=== PATIENT | female | born 1940 | race Caucasian/White ===

== ENCOUNTER 2024-01-13 13:56 | Emergency (ER) | payer MEDICARE, OTHER, SELFPAY ==
[2024-01-13 14:06] VITALS: BP 165/83; PULSE 63; TEMP 36.7; O2SAT 96; BMI 35.6
--- NOTE | 2024-01-13 14:40 | XR_ITS ---
The [address] [address] Patient Name: ADRIAN AGUAYO MRN: [id number] date: 1940 Sex: F Assigned Patient Location: ER Current Patient Location: ER Accession/Order Number: [id number] Exam Date: 01/13/2024 15:00 Report Date: 01/13/2024 16:10 At the request of: RIVER AGUILAR Procedure: XR ribs RT min 3V w CXR1V EXAMINATION: XR ribs RT min 3V w CXR1V HISTORY: Atraumatic pain COMPARISON: No relevant comparison available. FINDINGS: LUNGS: No significant pulmonary parenchymal abnormalities. PLEURA: No pneumothorax, effusion, or pleural thickening. MEDIASTINUM: No visible mass or adenopathy. CARDIAC: No cardiomegaly or cardiac silhouette abnormality. RIBS: No acute rib fracture OTHER: Degenerative spondylosis of the spine XR/XR ribs RT min 3V w CXR1V IMPRESSION: Clear lungs No acute rib fracture Electronically authenticated by: HEAVEN ARGUELLES Date: 01/13/2024 16:10
--- NOTE | 2024-01-13 14:50 | ED_ITS ---
HPI HPI - General Adult General Chief complaint: Extremity Injury, Upper Stated complaint: RIGHT FLANK PAIN Time Seen by Provider: 01/13/24 14:00 Source: patient Mode of arrival: walk-in Limitations: no limitations History of Present Illness HPI narrative: 83-year-old female presenting for right lateral lower rib area pain. It has been that way for 4 days. There is no trauma dysuria or hematuria. She does not complain of cough or shortness of breath. If she lays still it does not hurt at all but if she moves at all it hurts. Pushing on it makes it worse as well and the pain is sharp. Related Data Home Medications ?Medication ?Instructions ?Recorded ?Confirmed apixaban 2.5 mg tablet (Eliquis) 2.5 mg PO Q12H 01/13/24 01/13/24 bisoprolol fumarate 5 mg tablet 5 mg PO BID 01/13/24 01/13/24 celecoxib 200 mg capsule (Celebrex) 200 mg PO DAILY 01/13/24 01/13/24 cyanocobalamin (vitamin B-12) 1,000 mcg IM Q3D 01/13/24 01/13/24 1,000 mcg/mL injection solution donepezil 5 mg tablet 5 mg PO .qhs 01/13/24 01/13/24 flecainide 50 mg tablet 50 mg PO Q12H 01/13/24 01/13/24 furosemide 40 mg tablet 80 mg PO DAILY 01/13/24 01/13/24 hydralazine 50 mg tablet 50 mg PO Q12H 01/13/24 01/13/24 levothyroxine 112 mcg tablet 100 mcg PO DAILY 01/13/24 01/13/24 losartan 50 mg tablet 25 mg PO DAILY 01/13/24 01/13/24 potassium chloride 20 mEq 20 meq PO DAILY 01/13/24 01/13/24 tablet,extended release spironolactone 25 mg tablet 25 mg PO Q12H 01/13/24 01/13/24 Allergies Allergy/AdvReac Type Severity Reaction Status Date / Time codeine AdvReac Intermediate Unknown Verified 01/13/24 14:20 meperidine [From Demerol] AdvReac Intermediate Unknown Verified 01/13/24 14:20 sofadol AdvReac Intermediate Unknown Uncoded 01/13/24 14:20 Opioid HPI Opioid Management Most Recent Opioid Data: No Data to Display Review of Systems ROS Narrative A ten point review of systems is negative except as noted above. PFSH PFSH Social History Little interest or pleasure in doing things: not at all Feeling down, depressed, or hopeless: not at all Exam Narrative Exam Narrative: Nurses note and vital signs reviewed and patient is not hypoxic. General: The patient appears well and in no apparent distress. Skin: Warm, dry, no pallor noted. There is no rash noted. Head: Normocephalic, atraumatic Eye: Normal conjunctiva, no drainage Ears, Nose, Mouth, and Throat: oral mucosa is moist. Nares patent. Cardiovascular: Regular Rate and Rhythm Respiratory: Patient is in no distress, no accessory muscle use, lungs are clear to auscultation, no wheezing, rales or rhonchi. Breath sounds are equal. She has reproducible tenderness to the right lateral lower rib area. There is no crepitus bruise or rash in this area. Back: non-tender GI: Soft and nontender including the right upper quadrant Musculoskeletal: The patient has no evidence of calf tenderness, no pitting edema, symmetrical pulses noted bilaterally Neurological: Awake alert Psychiatric: Cooperative Constitutional Vital Signs, click to edit/add: Last Vital Signs Temp 98.0 F 01/13/24 14:06 Pulse 63 01/13/24 14:06 Resp 18 01/13/24 14:06 BP 165/83 H 01/13/24 14:06 Pulse Ox 96 01/13/24 14:06 O2 Del Method Room Air 01/13/24 14:06 Course Vital Signs Vital signs: Vital Signs Temperature 98.0 F 01/13/24 14:06 Pulse Rate 63 01/13/24 14:06 Respiratory Rate 18 01/13/24 14:06 Blood Pressure 165/83 H 01/13/24 14:06 Pulse Oximetry 96 01/13/24 14:06 Oxygen Delivery Method Room Air 01/13/24 14:06 Temperature 98.0 F 01/13/24 14:06 Pulse Rate 63 01/13/24 14:06 Respiratory Rate 18 01/13/24 14:06 Blood Pressure 165/83 H 01/13/24 14:06 Pulse Oximetry 96 01/13/24 14:06 Oxygen Delivery Method Room Air 01/13/24 14:06 Medical Decision Making MDM Narrative Medical decision making narrative: Urinalysis is negative and rib films are negative as well. Her pain is reproducible and my clinical impression is that she has chest wall pain. I have no clinical suspicion of Pulmonary: Embolism. She is on Eliquis and we will avoid anti-inflammatories. Ice and Tylenol were recommended. Treatment diagnosis and follow-up were discussed with the patient and her family. Differential Diagnosis Differential Diagnosis: UTI, chest wall pain, muscle strain Lab Data Lab results reviewed: Yes I reviewed the patient's lab results Labs: Lab Results 01/13/24 01/13/24 Range/Units 14:45 14:53 WBC 7.6 (4.0-11.0) 10^3/uL RBC 4.37 (4.20-5.40) 10^6/uL Hgb 13.9 (12.0-16.0) g/dL Hct 43.2 (36.0-48.0) % MCV 98.9 (81.0-99.0) fL MCH 31.8 (26.7-34.0) pg MCHC 32.2 (29.9-35.2) g/dL RDW 12.9 (11.0-15.0) % Plt Count 225 (150-450) 10^3/uL MPV 9.7 (9.5-13.5) fL Neut % (Auto) 68.6 (43.0-75.0) % Lymph % (Auto) 17.8 L (20.5-60.0) % [place] % (Auto) 11.0 (1.7-12.0) % Eos % (Auto) 1.8 (0.9-7.0) % Baso % (Auto) 0.5 (0.2-2.0) % Neut # (Auto) 5.2 (1.4-6.5) 10^3/uL Lymph # (Auto) 1.4 (1.2-3.8) 10^3/uL [place] # (Auto) 0.8 (0.3-0.8) 10^3/uL Eos # (Auto) 0.1 (0.0-0.7) 10^3/uL Baso # (Auto) 0.0 (0.0-0.1) 10^3/uL Abs Immat Gran (auto) 0.02 (0.00-0.03) 10^3/uL Imm/Tot Granulo (auto) 0.3 (0.0-0.5) % Sodium 139 (136-145) mmol/L Potassium 4.2 (3.5-5.1) mmol/L Chloride 103 (98-107) mmol/L Carbon Dioxide 29.3 (21.0-32.0) mmol/L Anion Gap 10.9 BUN 34.0 H (7.0-18.0) mg/dL Creatinine 1.47 H (0.55-1.02) mg/dL Est GFR ( Amer) 41 L (>=60) Est GFR (Non-Af Amer) 34 L (>=60) BUN/Creatinine Ratio 23.1 Glucose 96 (74-106) mg/dL Calcium 9.7 (8.5-10.1) mg/dL Urine Color Lt. yellow (YELLOW) Urine Clarity Clear (CLEAR) Urine pH 6.0 (5.0-9.0) Ur Specific [place] 1.015 (1.005-1.025) Urine Protein Negative (NEG/TRACE) mg/dL Urine Glucose (UA) Negative (NEGATIVE) mg/dL Urine Ketones Negative (NEGATIVE) mg/dL Urine Occult Blood Negative (NEGATIVE) Urine Nitrite Negative (NEGATIVE) Urine Bilirubin Negative (NEGATIVE) Urine Urobilinogen 0.2 (0.2-1.0) EU/dL Ur Leukocyte Esterase Trace A (NEGATIVE) Urine RBC None seen (0-2) #/HPF Urine WBC 2-5 A (NONE SEEN) #/HPF Ur Squamous Epith Cells Few A (NONE/RARE) #/LPF Urine Bacteria None seen (NONE SEEN) #/HPF Urine Mucus None seen (NONE SEEN) Imaging Data Chest x-ray: Radiologist's impression: ITS Impressions Ribs X-Ray 01/13/24 14:40 IMPRESSION: Clear lungs No acute rib fracture Electronically authenticated by: HEAVEN ARGUELLES Date: 01/13/2024 16:10 Discharge Plan Discharge Chief Complaint: Extremity Injury, Upper Clinical Impression: Chest wall pain Patient Disposition: Home, Self-Care Time of Disposition Decision: 16:29 Condition: Good Mode of Transportation: Private Vehicle Prescriptions / Home Meds: No Action Eliquis 2.5 mg tablet 2.5 mg PO Q12H bisoprolol fumarate 5 mg tablet 5 mg PO BID cyanocobalamin (vitamin B-12) 1,000 mcg/mL solution 1,000 mcg IM Q3D donepezil 5 mg tablet 5 mg PO .qhs flecainide 50 mg tablet 50 mg PO Q12H furosemide 40 mg tablet 80 mg PO DAILY hydralazine 50 mg tablet 50 mg PO Q12H levothyroxine 112 mcg tablet 100 mcg PO DAILY losartan 50 mg tablet 25 mg PO DAILY potassium chloride 20 mEq tablet extended release 20 meq PO DAILY spironolactone 25 mg tablet 25 mg PO Q12H celecoxib [Celebrex] 200 mg capsule 200 mg PO DAILY Print Language: Greenlandic Instructions: Chest Wall Pain (ED) Additional Instructions: Ice and Tylenol for pain Referrals: CARMELO TATUM MD [Primary Care Provider] - 1 week
[2024-01-13 15:00] LABS: Basophils Percent Auto 0.5 % (0.2-2.0); Eosinophils Absolute Auto 0.1 10^3/uL (0.0-0.7); Eosinophils Percent Auto 1.8 % (0.9-7.0); Hematocrit 43.2 % (36.0-48.0); Hemoglobin 13.9 g/dL (12.0-16.0); Immature Granulocytes Abs Auto 0.02 10^3/uL (0.00-0.03); Immature Granulocytes Pct Auto 0.3 % (0.0-0.5); Lymphocytes Absolute Auto 1.4 10^3/uL (1.2-3.8); Lymphocytes Percent Auto 17.8 % (20.5-60.0); Mean Corpuscular HGB Conc 32.2 g/dL (29.9-35.2); Mean Corpuscular Hemoglobin 31.8 pg (26.7-34.0); Mean Corpuscular Volume 98.9 fL (81.0-99.0); Mean Platelet Volume 9.7 fL (9.5-13.5); Monocytes Absolute Auto 0.8 10^3/uL (0.3-0.8); Neutrophils Absolute Auto 5.2 10^3/uL (1.4-6.5); Neutrophils Percent Auto 68.6 % (43.0-75.0); Platelet Count 225 10^3/uL (150-450); Red Blood Count 4.37 10^6/uL (4.20-5.40); Red Cell Distribution Width 12.9 % (11.0-15.0); White Blood Count 7.6 10^3/uL (4.0-11.0)
[2024-01-13 15:01] LABS: Bilirubin Urine NEGATIVE (NEGATIVE); Blood Urine NEGATIVE (NEGATIVE); Clarity Urine CLEAR (CLEAR); Color Urine LT. YELLOW (YELLOW); Glucose Urine UA NEGATIVE (NEGATIVE); Ketones Urine NEGATIVE (NEGATIVE); Leukocyte Esterase Urine TRACE (NEGATIVE); Nitrite Urine NEGATIVE (NEGATIVE); Protein Urine NEGATIVE (NEG/TRACE); Specific Gravity Urine 1.015 (1.005-1.025); Urobilinogen Urine 0.2 EU/dL (0.2-1.0)
[2024-01-13 15:09] LABS: Bacteria Urine NONE SEEN #/HPF (NONE SEEN); Mucus Urine NONE SEEN (NONE SEEN); RBC Urine NONE SEEN #/HPF (0-2)
[2024-01-13 15:10] LABS: Squamous Epithelial Cell Urine FEW #/LPF (NONE/RARE)
[2024-01-13 15:34] LABS: Anion Gap 10.9; BUN Creatinine Ratio 23.1; Calcium 9.7 mg/dL (8.5-10.1); Carbon Dioxide 29.3 mmol/L (21.0-32.0); Chloride 103 mmol/L (98-107); Estimated GFR (African America 41 (>=60); Estimated GFR (Non-African Ame 34 (>=60); Glucose 96 mg/dL (74-106); Potassium 4.2 mmol/L (3.5-5.1); Sodium 139 mmol/L (136-145)
[2024-01-13 16:39] VITALS: BP 138/74; PULSE 78; O2SAT 99
== END 2024-01-13 16:41 | disposition home or self-care (01) ==
PROVIDERS: Emergency Provider Emergency Medicine; PCP Internal Medicine
DX: R07.89 Other chest pain (principal)
CPT/HCPCS: 36415; 71101; 80048; 81001; 85025; 99284

== ENCOUNTER 2024-02-06 12:58 | Emergency (ER) | payer MEDICARE, OTHER, SELFPAY ==
[2024-02-06] VITALS (7 sets, daily range): BP systolic 153; BP diastolic 86; PULSE 65–70; TEMP 36.5; O2SAT 95–97; BMI 34.3
--- NOTE | 2024-02-06 13:14 | XR_ITS ---
The [address] [address] Patient Name: ADRIAN AGUAYO MRN: [id number] date: 1940 Sex: F Assigned Patient Location: ER Current Patient Location: ER Accession/Order Number: [id number] Exam Date: 02/06/2024 13:40 Report Date: 02/06/2024 13:58 At the request of: CLAUDIA UPTON Procedure: XR chest 1V EXAMINATION: XR chest 1V HISTORY: cough, SOB COMPARISON: No relevant comparison available. TECHNIQUE: AP portable erect FINDINGS: LUNGS: No significant pulmonary parenchymal abnormalities. VASCULATURE: No increased pulmonary vasculature. PLEURA: No pneumothorax, effusion, or pleural thickening. CARDIAC: No cardiomegaly or cardiac silhouette abnormality. MEDIASTINUM: No visible mass or adenopathy. BONES: Mild degenerative disc disease and spondylosis without visible acute abnormalities. OTHER: Negative. XR/XR chest 1V IMPRESSION: No acute cardiopulmonary process Electronically authenticated by: HEAVEN ARGUELLES Date: 02/06/2024 13:58
--- NOTE | 2024-02-06 13:14 | ECG_ITS ---
The [facility] Test Date: 2024-02-06 Pat Name: ADRIAN AGUAYO Department: Room: - Gender: Female Manager [employer]: : 1940 Requested By: 1813 Order Number: [id number] Reading MD: ONEL VERGARA Measurements Intervals [place] Rate: 66 P: 96 [place]: 186 QRS: -4 QRSD: 94 T: 36 QT: 344 QTc: 358 Interpretive Statements 1100 Sinus rhythm 4068 Nonspecific Twave abnormality 8305 Short QTc interval 9150 abnormal ECG No previous ECG available for comparison Electronically Signed On 02-06-2024 22:44:49 EDT by ONEL VERGARA
--- NOTE | 2024-02-06 13:16 | ED.SOB1 ---
HPI - SOB/Dyspnea General Chief Complaint: Shortness of Breath/Dyspnea Stated Complaint: URI SYMPTOMS Time Seen by Provider: 02/06/24 13:09 Source: family Mode of arrival: Wheelchair Limitations: no limitations History of Present Illness HPI Narrative: 83 year old female presents to the ED for cough, SOB. Onset was 4 days ago with the cough, congestion. She developed SOB, wheezing last night. Denies fever, chills, N/V/D. Multiple family members are ill; daughter states one family member was diagnosed with RSV. Pt has hx a-fib. She takes Eliquis. Related Data Home Medications ?Medication ?Instructions ?Recorded ?Confirmed apixaban 2.5 mg tablet (Eliquis) 2.5 mg PO Q12H 01/13/24 02/06/24 bisoprolol fumarate 5 mg tablet 5 mg PO BID 01/13/24 02/06/24 celecoxib 200 mg capsule (Celebrex) 200 mg PO DAILY 01/13/24 02/06/24 cyanocobalamin (vitamin B-12) 1,000 mcg IM Q3D 01/13/24 02/06/24 1,000 mcg/mL injection solution donepezil 5 mg tablet 5 mg PO .qhs 01/13/24 02/06/24 flecainide 50 mg tablet 50 mg PO Q12H 01/13/24 02/06/24 furosemide 40 mg tablet 80 mg PO DAILY 01/13/24 02/06/24 hydralazine 50 mg tablet 50 mg PO Q12H 01/13/24 02/06/24 levothyroxine 112 mcg tablet 100 mcg PO DAILY 01/13/24 02/06/24 losartan 50 mg tablet 25 mg PO DAILY 01/13/24 02/06/24 potassium chloride 20 mEq 20 meq PO DAILY 01/13/24 02/06/24 tablet,extended release spironolactone 25 mg tablet 25 mg PO Q12H 01/13/24 02/06/24 Previous Rx's ?Medication ?Instructions ?Recorded albuterol sulfate 2.5 mg/3 mL 2.5 mg (3 mL) inhalation Q8H PRN 02/06/24 (0.083 %) solution for nebulization shortness of breath or wheezing #90 mL benzonatate 100 mg capsule 100 mg PO BID PRN cough #20 caps 02/06/24 prednisone 10 mg tablet See Rx Instructions .Route 02/06/24 .COMPLEX #30 tabs Allergies Allergy/AdvReac Type Severity Reaction Status Date / Time codeine AdvReac Intermediate Unknown Verified 02/06/24 13:07 meperidine (From Demerol) AdvReac Intermediate Unknown Verified 02/06/24 13:07 sofadol AdvReac Intermediate Unknown Uncoded 02/06/24 13:07 Review of Systems ROS Constitutional Denies: fever or chills Ears, nose, mouth, and throat Reports: nasal discharge and nasal congestion; Denies: throat pain, neck pain, ear pain or ear discharge Cardiovascular Denies: chest pain Respiratory Reports: shortness of breath and cough Gastrointestinal Denies: abdominal pain, nausea, vomiting or diarrhea Integumentary/Breast Denies: rash Neurological Denies: headache or weakness in extremities PFSH PFSH Social History Little interest or pleasure in doing things: not at all Feeling down, depressed, or hopeless: not at all Exam Constitutional Vital Signs, click to edit/add: Last Vital Signs Temp 97.7 F 02/06/24 13:07 Pulse 65 02/06/24 14:20 Resp 18 02/06/24 14:20 BP 153/86 H 02/06/24 13:07 Pulse Ox 95 02/06/24 14:20 O2 Del Method Room Air 02/06/24 13:07 Common normals: no apparent distress and oriented x3 General appearance: cooperative HENMT Nose: nasal discharge Mouth: lip normal and tongue normal Throat: posterior oropharynx normal Eye Common normals: conjunctivae normal and no scleral icterus Neck & C-Spine Common normals: supple Chest Chest: symmetrical chest wall rise Respiratory Effort & inspection: symmetric chest movement and tachypneic; no respiratory distress, no decreased respiratory effort and no stridor Auscultation: wheezes Cardio Common normals: regular rate Neuro Common normals: oriented x3 and moves all extremities Sensorium/orientation: awake and alert Course Vital Signs Vital signs: Vital Signs Temperature 97.7 F 02/06/24 13:07 Pulse Rate 70 02/06/24 13:07 Respiratory Rate 24 H 02/06/24 13:07 Blood Pressure 153/86 H 02/06/24 13:07 Pulse Oximetry 95 02/06/24 13:07 Oxygen Delivery Method Room Air 02/06/24 13:07 Temperature 97.7 F 02/06/24 13:07 Pulse Rate 65 02/06/24 14:20 Respiratory Rate 18 02/06/24 14:20 Blood Pressure 153/86 H 02/06/24 13:07 Pulse Oximetry 95 02/06/24 14:20 Oxygen Delivery Method Room Air 02/06/24 13:07 MDM - SOB/Dyspnea MDM Narrative Medical decision making narrative: Chest x-ray was negative for acute findings. Covid-19 was negative. CBC and BMP were completed. The patient was given IV solumedrol and an albuterol treatment with improvement. Findings were discussed. She was comfortable being discharged home. Prescriptions were provided for prednisone and tessalon perles. Follow up with pcp for a recheck, further evaluation and treatment. Differential Diagnosis Differential diagnosis: Likely congestive heart failure, community acquired pneumonia and other (Covid-19, viral illness) Medical Records Attestation: I reviewed the patient's medical records. Lab Data Attestation: I reviewed the patient's lab results. Labs: Lab Results 02/06/24 02/06/24 Range/Units 13:35 13:48 WBC 6.7 (4.0-11.0) 10^3/uL RBC 4.36 (4.20-5.40) 10^6/uL Hgb 13.9 (12.0-16.0) g/dL Hct 42.9 (36.0-48.0) % MCV 98.4 (81.0-99.0) fL MCH 31.9 (26.7-34.0) pg MCHC 32.4 (29.9-35.2) g/dL RDW 13.1 (11.0-15.0) % Plt Count 223 (150-450) 10^3/uL MPV 10.0 (9.5-13.5) fL Neut % (Auto) 64.1 (43.0-75.0) % Lymph % (Auto) 21.4 (20.5-60.0) % [place] % (Auto) 10.8 (1.7-12.0) % Eos % (Auto) 3.0 (0.9-7.0) % Baso % (Auto) 0.4 (0.2-2.0) % Neut # (Auto) 4.3 (1.4-6.5) 10^3/uL Lymph # (Auto) 1.4 (1.2-3.8) 10^3/uL [place] # (Auto) 0.7 (0.3-0.8) 10^3/uL Eos # (Auto) 0.2 (0.0-0.7) 10^3/uL Baso # (Auto) 0.0 (0.0-0.1) 10^3/uL Abs Immat Gran (auto) 0.02 (0.00-0.03) 10^3/uL Imm/Tot Granulo (auto) 0.3 (0.0-0.5) % Sodium 143 (136-145) mmol/L Potassium 4.0 (3.5-5.1) mmol/L Chloride 105 (98-107) mmol/L Carbon Dioxide 24.4 (21.0-32.0) mmol/L Anion Gap 17.6 BUN 23.0 H (7.0-18.0) mg/dL Creatinine 1.44 H (0.55-1.02) mg/dL Est GFR ( Amer) 42 L (>=60 mL/min/1.73m^2) Est GFR (Non-Af Amer) 35 L (>=60 mL/min/1.73m^2) BUN/Creatinine Ratio 16.0 Glucose 95 (74-106) mg/dL Calcium 9.9 (8.5-10.1) mg/dL NT-Pro-B Natriuret Pep 779.0 (<=1800.0) pg/mL SARS-CoV-2 Ag (CV2AG) Negative (NEGATIVE) Imaging Data Chest x-ray: Attestation: I have reviewed the pertinent imaging results. Radiologist's impression: ITS Impressions Chest X-Ray 02/06/24 13:14 IMPRESSION: No acute cardiopulmonary process Electronically authenticated by: HEAVEN ARGUELLES Date: 02/06/2024 13:58 ECG Data Attestation: ?I have reviewed the pertinent ECG results. (EKG was reviewed by the attending physician. It showed sinus rhythm at a rate of 66. No acute ST segment changes.) Interpretation: Measurements Intervals [place] Rate: 66 P: 96 [place]: 186 QRS: -4 QRSD: 94 T: 36 QT: 344 QTc: 358 Interpretive Statements 1100 Sinus rhythm 4068 Nonspecific [place]ave abnormality 8305 Short QTc interval 9150 abnormal ECG No previous ECG available for comparison Discharge Plan Discharge Chief Complaint: Shortness of Breath/Dyspnea Clinical Impression: Upper respiratory infection, viral Patient Disposition: Home, Self-Care Time of Disposition Decision: 14:24 Condition: Good Mode of Transportation: Private Vehicle Prescriptions / Home Meds: New prednisone 10 mg tablet See Rx Instructions .ROUTE .COMPLEX Qty: 30 0RF Rx Instructions: Take 5 tablets on days 1-2, 4 tabs on days 3-4, 3 tabs on days 5-6, 2 tabs on days 7-8, 1 tab on days 9-10. benzonatate 100 mg capsule 100 mg PO BID PRN (Reason: cough) Qty: 20 0RF albuterol sulfate 2.5 mg /3 mL (0.083 %) solution for nebulization 2.5 mg inhalation Q8H PRN (Reason: shortness of breath or wheezing) Qty: 90 0RF No Action Eliquis 2.5 mg tablet 2.5 mg PO Q12H bisoprolol fumarate 5 mg tablet 5 mg PO BID cyanocobalamin (vitamin B-12) 1,000 mcg/mL solution 1,000 mcg IM Q3D donepezil 5 mg tablet 5 mg PO .qhs flecainide 50 mg tablet 50 mg PO Q12H furosemide 40 mg tablet 80 mg PO DAILY hydralazine 50 mg tablet 50 mg PO Q12H levothyroxine 112 mcg tablet 100 mcg PO DAILY losartan 50 mg tablet 25 mg PO DAILY potassium chloride 20 mEq tablet extended release 20 meq PO DAILY spironolactone 25 mg tablet 25 mg PO Q12H celecoxib [Celebrex] 200 mg capsule 200 mg PO DAILY Print Language: Egyptian Instructions: Upper Respiratory Infection (ED) Additional Instructions: Return to the ER for new or worsening symptoms. Referrals: CARMELO TATUM MD [Primary Care Provider] - 1 week Discharge Date/Time: 02/06/24 14:49
[2024-02-06] MEDS: ALBUTEROL SULFATE 2.5 MG/3 ML VIAL NEB IH (13:30)
[2024-02-06] MEDS: METHYLPREDNISOLONE SOD SUCC PF 125 MG/2 ML VIAL IVP (13:34)
[2024-02-06 13:43] LABS: Basophils Percent Auto 0.4 % (0.2-2.0); Eosinophils Absolute Auto 0.2 10^3/uL (0.0-0.7); Hematocrit 42.9 % (36.0-48.0); Hemoglobin 13.9 g/dL (12.0-16.0); Immature Granulocytes Abs Auto 0.02 10^3/uL (0.00-0.03); Immature Granulocytes Pct Auto 0.3 % (0.0-0.5); Lymphocytes Absolute Auto 1.4 10^3/uL (1.2-3.8); Lymphocytes Percent Auto 21.4 % (20.5-60.0); Mean Corpuscular HGB Conc 32.4 g/dL (29.9-35.2); Mean Corpuscular Hemoglobin 31.9 pg (26.7-34.0); Mean Corpuscular Volume 98.4 fL (81.0-99.0); Monocytes Absolute Auto 0.7 10^3/uL (0.3-0.8); Monocytes Percent Auto 10.8 % (1.7-12.0); Neutrophils Absolute Auto 4.3 10^3/uL (1.4-6.5); Neutrophils Percent Auto 64.1 % (43.0-75.0); Platelet Count 223 10^3/uL (150-450); Red Blood Count 4.36 10^6/uL (4.20-5.40); Red Cell Distribution Width 13.1 % (11.0-15.0); White Blood Count 6.7 10^3/uL (4.0-11.0)
[2024-02-06 14:08] LABS: Anion Gap 17.6; Calcium 9.9 mg/dL (8.5-10.1); Carbon Dioxide 24.4 mmol/L (21.0-32.0); Chloride 105 mmol/L (98-107); Estimated GFR (African America 42 (>=60 mL/min/1.73m^2); Estimated GFR (Non-African Ame 35 (>=60 mL/min/1.73m^2); Glucose 95 mg/dL (74-106); Sodium 143 mmol/L (136-145)
[2024-02-06 14:19] LABS: Internal Control Within Normal Limits; SARS-CoV-2 Ag NEGATIVE (NEGATIVE)
== END 2024-02-06 14:49 | disposition home or self-care (01) ==
PROVIDERS: Nurse Practitioner Family; Emergency Provider Student in an Organized Health Care Education/Training Program; PCP Internal Medicine
DX: J06.9 Acute upper respiratory infection, unspecified (principal); Z20.822 Contact with and (suspected) exposure to COVID-19; Z79.01 Long term (current) use of anticoagulants; I48.91 Unspecified atrial fibrillation; R06.02 Shortness of breath
CPT/HCPCS: 36415; 71045; 80048; 83880; 85025; 87811; 93005; 94640; 96374; 99285; J2919